=== PATIENT | male | born 1975 | race Hispanic/Latino ===

== ENCOUNTER 2022-04-30 13:41 | Emergency (ER) | payer OTHER ==
[~2022-04-30] VITALS: Ht 193 cm; Wt 62.6 kg
[2022-04-30] MEDS ORDERED: TYLE650T38 PO (13:48)
[2022-04-30 14:35] LABS: RSV AMPLIFICATION NEGATIVE (NEGATIVE)
[2022-04-30] MEDS ORDERED: OSEL75CA PO (19:53)
[2022-04-30 20:02] VITALS: BP 123/71
== END 2022-04-30 20:10 | disposition home or self-care (01) ==
LOC: M ED 13:41
DX: J09.X2 Influenza due to identified novel influenza A virus with other respiratory manifestations (principal); F17.290 Nicotine dependence, other tobacco product, uncomplicated; Z79.1 Long term (current) use of non-steroidal anti-inflammatories (NSAID)